=== PATIENT | male | born 1980 | race Caucasian/White ===

== ENCOUNTER 2018-04-27 00:28 | Emergency (ER) | payer OTHER ==
[2018-04-27 00:45] VITALS: BP 147/73; PULSE 62; RESP 18; TEMP 98.8; O2SAT 98
--- NOTE | 2018-04-27 01:13 | ED PDOC ---
HPI: CCC, URI, Sore Throat Time Seen by Provider: 04/27/18 00:57 Chief Complaint (Nursing): Abdominal Pain Chief Complaint (Provider): [place], sore throat for 1 day History Per: Patient History/Exam Limitations: no limitations Onset/Duration Of Symptoms: Days Current Symptoms Are (Timing): Still Present Additional Complaint(s): 38 yo male with history of crohn's presents for evaluation of sore throat and cough x 1 day. Pt also reports chest pain when coughing. Pt states that he has also been having abdominal pain for a few hours. Pt took OTC medication/ supplement which calmed the pain a little. Pt states this feels like his normal pain which he normally takes and anti-spasmatic medication for. PT deneis N/V/ D. no fever/chills. Pt is on honeymoon. Past Medical History Reviewed: Historical Data, Nursing Documentation, Vital Signs Vital Signs: Last Vital Signs Temp 98.8 F 04/27/18 00:42 Pulse 62 04/27/18 00:42 Resp 18 04/27/18 00:42 BP 147/73 04/27/18 00:42 Pulse Ox 98 04/27/18 01:16 - Medical History PMH: Crohn's Disease - Surgical History Surgical History: No Surg Hx - Family History Family History: States: No Known Family Hx - Living Arrangements Living Arrangements: With Family - Social History Current smoker - smoking cessation education provided: No - Home Medications Home Medications: Ambulatory Orders Medication Instructions Recorded Azithromycin [Zithromax] 250 mg PO DAILY #6 tab 04/27/18 Dicyclomine [Bentyl] 20 mg PO Q6H PRN #20 tab 04/27/18 - Allergies Allergies/Adverse Reactions: Allergies Allergy/AdvReac Type Severity Reaction Status Date / Time iodine Allergy RASH Verified 04/27/18 00:45 Review of Systems ROS Statement: Except As Marked, All Systems Reviewed And Found Negative Constitutional: Negative for: Fever, Chills ENT: Positive for: Throat Pain Respiratory: Positive for: Cough. Negative for: Shortness of Breath Gastrointestinal: Positive for: Abdominal Pain. Negative for: Nausea, Vomiting , Diarrhea Physical Exam - Reviewed Nursing Documentation Reviewed: Yes Vital Signs Reviewed: Yes - Physical Exam Appears: Positive for: Well, Non-toxic, No Acute Distress Head Exam: Positive for: ATRAUMATIC, NORMAL INSPECTION, NORMOCEPHALIC Skin: Positive for: Normal Color, Warm, DRY Eye Exam: Positive for: Normal appearance ENT: Positive for: Normal ENT Inspection Neck: Positive for: Normal, Painless ROM Cardiovascular/Chest: Positive for: Regular Rate, Rhythm Respiratory: Positive for: Normal Breath Sounds. Negative for: Accessory Muscle Use, Respiratory Distress Gastrointestinal/Abdominal: Positive for: Normal Exam, Soft, Tenderness ( Diffuse ) Back: Positive for: Normal Inspection Extremity: Positive for: Normal ROM Neurologic/Psych: Positive for: Alert, Oriented - Laboratory Results Result Diagrams: 04/27/18 01:25 04/27/18 01:25 - ECG O2 Sat by Pulse Oximetry: 98 Medical Decision Making Medical Decision Making: Pt reports feeling much better on re-evaluation. Disposition - Clinical Impression Clinical Impression: URI (upper respiratory infection), Abdominal pain Counseled Patient/Family Regarding: Diagnosis, Need For Followup, Rx Given - Disposition Disposition: Routine/Home Disposition Time: 02:59 Condition: STABLE Prescriptions: Azithromycin [Zithromax] 250 mg PO DAILY #6 tab Dicyclomine [Bentyl] 20 mg PO Q6H PRN #20 tab PRN Reason: Cramping Instructions: Bacterial Upper Respiratory Infection, Adult Forms: [facility] (Lebanese)
[2018-04-27 01:34] LABS: BASO # 0.1 K/uL (0.0-0.2); BASO % 0.8 % (0.0-2.0); EOS # 0.3 K/uL (0.0-0.7); EOS % 2.3 % (0.0-4.0); HEMOGLOBIN 14.1 g/dL (12.0-18.0); LYMPH # 4.2 K/uL (1.0-4.3); LYMPH % 37.2 % (20.0-40.0); MEAN CELL VOLUME 85.9 fl (80.0-94.0); MEAN CORPUSCULAR HEMOGLOBIN 29.5 pg (27.0-31.0); MEAN CORPUSCULAR HGB CONC 34.3 g/dL (33.0-37.0); MEAN PLATELET VOLUME 8.1 fl (7.2-11.7); MONO # 0.9 K/uL (0.0-0.8); MONO % 7.7 % (0.0-10.0); NEUT # 5.9 K/uL (1.8-7.0); NRBC % 0.1 % (0.0-0.0); RBC 4.78 Mil/uL (4.40-5.90); RED CELL DISTRIBUTION WIDTH 13.2 % (11.5-14.5); WHITE BLOOD COUNT 11.4 K/uL (4.8-10.8)
[2018-04-27 01:46] LABS: ALB/GLOB RATIO 1.2 (1.0-2.1); ALT/SGPT 75 U/L (21-72); AST/SGOT 49 U/L (17-59); BLOOD UREA NITROGEN 20 mg/dl (9-20); CALCIUM 8.9 mg/dL (8.4-10.2); GFR NON-AFRICAN AMERICAN > 60
--- NOTE | 2018-04-27 08:35 | RAD ---
Date of service: 04/27/2018 HISTORY: cough COMPARISON: No prior. TECHNIQUE: Chest PA and lateral FINDINGS: LUNGS: No active pulmonary disease. PLEURA: No significant pleural effusion identified. No pneumothorax apparent. CARDIOVASCULAR: Normal. OSSEOUS STRUCTURES: No significant abnormalities. VISUALIZED UPPER ABDOMEN: Normal. OTHER FINDINGS: None. IMPRESSION: No active disease.
== END 2018-04-27 03:09 | disposition home or self-care (01) ==
LOC: H.ER 00:28
DX: J06.9 Acute upper respiratory infection, unspecified (principal); K50.90 Crohn's disease, unspecified, without complications

== ENCOUNTER 2018-04-30 18:40 | Inpatient (IN) | payer OTHER ==
[2018-04-30] MEDS ORDERED: Iohexol 240 (50 ml) PO ONE (20:18)
[2018-04-30 20:48] LABS: BASO # 0.1 K/uL (0.0-0.2); BASO % 0.7 % (0.0-2.0); EOS # 0.2 K/uL (0.0-0.7); EOS % 3.3 % (0.0-4.0); HEMOGLOBIN 15.3 g/dL (12.0-18.0); MEAN CELL VOLUME 85.9 fl (80.0-94.0); MEAN CORPUSCULAR HEMOGLOBIN 29.5 pg (27.0-31.0); MEAN CORPUSCULAR HGB CONC 34.4 g/dL (33.0-37.0); MEAN PLATELET VOLUME 8.5 fl (7.2-11.7); MONO # 0.5 K/uL (0.0-0.8); MONO % 6.7 % (0.0-10.0); NEUT # 2.6 K/uL (1.8-7.0); NEUT % 35.3 % (50.0-75.0); NRBC % 0.2 % (0.0-0.0); RBC 5.18 Mil/uL (4.40-5.90); RED CELL DISTRIBUTION WIDTH 13.3 % (11.5-14.5); WHITE BLOOD COUNT 7.4 K/uL (4.8-10.8)
[2018-04-30 21:23] LABS: ALB/GLOB RATIO 1.1 (1.0-2.1); ALBUMIN 4.5 g/dL (3.5-5.0); ALT/SGPT 560 U/L (21-72); AST/SGOT 352 U/L (17-59); BLOOD UREA NITROGEN 14 mg/dl (9-20); CALCIUM 9.8 mg/dL (8.4-10.2); GFR NON-AFRICAN AMERICAN > 60; LIPASE 66 U/L (23-300)
--- NOTE | 2018-04-30 21:31 | ED PDOC ---
HPI: Abdomen Time Seen by Provider: 04/30/18 19:57 Chief Complaint (Nursing): Abdominal Pain Chief Complaint (Provider): Abdominal Pain History Per: Patient History/Exam Limitations: no limitations Additional Complaint(s): Patient is a 38 y/o male visiting from [facility] who has a history of Crohn's disease who presents to the ED complaining of abdominal pain and URI. Patient was seen here a few days ago for the same symptoms and was discharged home but since the symptoms have persisted and he has also developed severe nausea. Patient denies any vomiting, fever, or diarrhea. Patient reports having mid epigastric and right sided abdominal pain. He also states he noticed his eyes were a little yellow. He spoke to his doctor in [facility] who said he should send ESR, CRP, and CT scans. He states he is allergic to iodine but only in IV form. PMD: in [facility] Past Medical History Reviewed: Historical Data, Nursing Documentation, Vital Signs Vital Signs: Last Vital Signs Temp 98.6 F 04/30/18 18:58 Pulse 54 L 04/30/18 18:58 Resp 16 04/30/18 18:58 BP 129/87 04/30/18 18:58 Pulse Ox 98 04/30/18 18:58 - Medical History PMH: Crohn's Disease - Surgical History Surgical History: Appendectomy, Tonsillectomy - Home Medications Home Medications: Ambulatory Orders Medication Instructions Recorded Azithromycin [Zithromax] 250 mg PO DAILY #6 tab 04/27/18 Dicyclomine [Bentyl] 20 mg PO Q6H PRN #20 tab 04/27/18 - Allergies Allergies/Adverse Reactions: Allergies Allergy/AdvReac Type Severity Reaction Status Date / Time iodine Allergy RASH Verified 04/27/18 00:45 Review of Systems ROS Statement: Except As Marked, All Systems Reviewed And Found Negative Constitutional: Negative for: Fever Eyes: Positive for: Other (yellow eyes) Respiratory: Positive for: Cough Gastrointestinal: Positive for: Nausea, Abdominal Pain. Negative for: Vomiting, Diarrhea Physical Exam - Reviewed Nursing Documentation Reviewed: Yes Vital Signs Reviewed: Yes - Physical Exam Appears: Positive for: Non-toxic, No Acute Distress Head Exam: Positive for: ATRAUMATIC, NORMOCEPHALIC Skin: Positive for: Normal Color, Warm, Dry Eye Exam: Positive for: Scleral icterus Neck: Positive for: Normal, Painless ROM Cardiovascular/Chest: Positive for: Regular Rate, Rhythm. Negative for: Murmur Respiratory: Positive for: Normal Breath Sounds. Negative for: Respiratory Distress Gastrointestinal/Abdominal: Positive for: Tenderness (mid epigastric tenderness; RUQ tenderness) Back: Positive for: Normal Inspection. Negative for: L CVA Tenderness, R CVA Tenderness Extremity: Positive for: Normal ROM. Negative for: Pedal Edema, Deformity Neurologic/Psych: Positive for: Alert, Oriented. Negative for: Motor/Sensory Deficits - Laboratory Results Result Diagrams: 04/30/18 20:40 04/30/18 20:40 - ECG O2 Sat by Pulse Oximetry: 98 (RA) Pulse Ox Interpretation: Normal Medical Decision Making Medical Decision Making: Time: 20:17 Impression: Abdominal pain Initial Plan: Abd Pelvis PO Contrast CMP CRP Lipase CBC w/ diff ESR Omnipaque Time: 22:01 Patient's LFTs are elevated Time: 23:27 CT report reviewed, CT A/P Impression: Pancolitis. Infectious and inflammatory etiologies are considered. 23:42 Patient to be admitted under Dr. Dhillon, and Dr. Hilliard for GI consult. Currently pending US result. --------- Scribe Attestation: Documented by Luis Vail, acting as a scribe for Edie Carney MD Provider Scribe Attestation: All medical record entries made by the Scribe were at my direction and personally dictated by me. I have reviewed the chart and agree that the record accurately reflects my personal performance of the history, physical exam, medical decision making, and the department course for this patient. I have also personally directed, reviewed, and agree with the discharge instructions and disposition. Disposition - Patient ED Disposition Is Patient to be Admitted: Yes - Disposition Disposition Time: 23:43 Condition: STABLE Forms: [facility] (Kyrgyz)
[2018-04-30] MEDS ORDERED: Ciprofloxacin 400mg/200ml D5W 400 MG/200 ML BAG IVPB STA (23:39)
[2018-04-30] MEDS ORDERED: metroNIDAZOLE 500mg/100ml NS 100 ML IVPB STA (23:41)
[2018-05-01] MEDS ORDERED: metroNIDAZOLE 500mg/100ml NS 100 ML IVPB ONE (01:24)
--- NOTE | 2018-05-01 09:02 | CP.PCM.CON ---
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 He reports over the last several days he had abd pain with URI symptoms (GUEVARA and congestion) for which he was recently seen in ED on 04/27 and DCed with dicyclomine and azithromycin. However, he returned on 04/30 due to onset of severe nausea, persistent abdominal pain and yellowing of the eyes. He states that abd pain is epigastric and R sided, non-radiating, worse with laying on R side and worse if he is not eating. States that bowel movements have been normal, formed brown with his last BM being in the ED. He denies any fevers, emesis, melena nor hematochezia. He states his last EGD and CSPY were about 18 months ago but does not know the results. Labs in the ED revealed increased liver tests and CT with pancolitis; therefore, patient started on started on cipro+metronidazole and GI called for further evaluation. 12 point ROS negative other than stated above MHx: See above SurgHx: Appendectomy, Tonsillectomy, IC resection (unclear details) Meds: Recently started of azithromycin, dicyclomine FamHx: Denied h/o GI probs SocHx: Denied EtOH, Tob or Illicits All: IV iodine - rash Past Patient History - Past Medical History & Family History Past Medical History?: Yes - Past Social History Smoking Status: Never Smoked - CARDIAC Hx Cardiac Disorders: No - PULMONARY Hx Respiratory Disorders: No - NEUROLOGICAL Hx Neurological Disorder: No - HEENT Hx HEENT Problems: No - RENAL Hx Chronic Kidney Disease: No - ENDOCRINE/METABOLIC Hx Endocrine Disorders: No - HEMATOLOGICAL/ONCOLOGICAL Hx Blood Disorders: No - INTEGUMENTARY Hx Dermatological Problems: No - MUSCULOSKELETAL/RHEUMATOLOGICAL Hx Falls: No - GASTROINTESTINAL Hx Gastrointestinal Disorders: Yes Hx Crohn's Disease: Yes - GENITOURINARY/GYNECOLOGICAL Hx Genitourinary Disorders: No - PSYCHIATRIC Hx Psychophysiologic Disorder: No Hx Substance Use: No - SURGICAL HISTORY Hx Surgeries: Yes Hx Appendectomy: Yes Hx Tonsillectomy: Yes - ANESTHESIA Hx Anesthesia: Yes Hx Anesthesia Reactions: No Hx Malignant Hyperthermia: No Has any member of the family had a problem w/ anesthesia?: No Meds Allergies/Adverse Reactions: Allergies Allergy/AdvReac Type Severity Reaction Status Date / Time iodine Allergy RASH Verified 04/27/18 00:45 Physical Exam - Constitutional Appears: Well, Non-toxic, No Acute Distress - Head Exam Head Exam: ATRAUMATIC, NORMAL INSPECTION - Eye Exam Eye Exam: EOMI, Scleral icterus. absent: Conjunctival injection - ENT Exam ENT Exam: Mucous Membranes Moist, Normal External Ear Exam. absent: Mucous Membranes Dry - Respiratory Exam Respiratory Exam: Clear to Auscultation Bilateral, NORMAL BREATHING PATTERN. absent: Wheezes - Cardiovascular Exam Cardiovascular Exam: REGULAR RHYTHM, RRR - GI/Abdominal Exam GI & Abdominal Exam: Normal Bowel Sounds, Soft. absent: Bruit, Diminished Bowel Sounds, Distended, Firm, Guarding, Hernia, Hyperactive Bowel Sounds, Hypoactive Bowel Sounds, Mass, Organomegaly, Pulsatile Mass, Rebound, Rigid, Tenderness - Rectal Exam Rectal Exam: Deferred - Extremities Exam Extremities exam: Positive for: normal inspection. Negative for: pedal edema - Neurological Exam Neurological exam: Alert, CN II-XII Intact - Psychiatric Exam Psychiatric exam: Normal Affect, Normal Mood - Skin Skin Exam: Dry, Warm Results - Vital Signs Recent Vital Signs: Last Vital Signs Temp 97 F L 05/01/18 08:47 Pulse 54 L 05/01/18 08:47 Resp 20 05/01/18 08:47 BP 116/77 05/01/18 08:47 Pulse Ox 97 05/01/18 08:47 - Labs Result Diagrams: 04/30/18 20:40 05/01/18 10:36 Labs: Laboratory Results - last 24 hr 04/30/18 04/30/18 20:40 20:40 WBC 7.4 RBC 5.18 Hgb 15.3 Hct 44.5 MCV 85.9 MCH 29.5 MCHC 34.4 RDW 13.3 Plt Count 197 MPV 8.5 Neut % (Auto) 35.3 L Lymph % (Auto) 54.0 H [place] % (Auto) 6.7 Eos % (Auto) 3.3 Baso % (Auto) 0.7 Neut # (Auto) 2.6 Lymph # (Auto) 4.0 [place] # (Auto) 0.5 Eos # (Auto) 0.2 Baso # (Auto) 0.1 ESR 30 H Sodium 141 Potassium 4.4 Chloride 103 Carbon Dioxide 30 Anion Gap 12 BUN 14 Creatinine 0.9 Est GFR ( Amer) > 60 Est GFR (Non-Af Amer) > 60 Random Glucose 83 Calcium 9.8 Total Bilirubin 6.2 H AST 352 H D ALT 560 H D Alkaline Phosphatase 147 H D Total Protein 8.6 H Albumin 4.5 Globulin 4.0 H Albumin/Globulin Ratio 1.1 Lipase 66 Assessment & Plan - Assessment and Plan (Free Text) Assessment: 38 yo M with Crohn's on adalimumab, h/o CMV (treated) and cholelitiasis presenting with abd pain, URI symptoms and jaundice. # Abd Pain, Transamnitis, Jaundice with Pancolitis seen on CT: Unclear exact etiology(ies) but pt with multiple risk factors. Constellation of presenting symptoms in an immunocompromised (adalimumab) would raise concerns for opportunistic infections such as CMV (especially given h/o of infection), HCV, etc. Pain is also already somewhat improving and given cholelithiasis seen on US, could raise possibility of passed stone, but CBD not dilated and would not explain colitis. Pt recently started on azithromycin which is rarely associated with drug-induced liver injury (DILI), though time course seems a little quick for it. Crohn's flare overall seems less likely given compliance with a dalimumab and normal BMs reported. Also, pancolitis on CT could be suggestive of UC rather than Crohn's; therefore raising concerns for PSC, AIH, etc. Plan: - Check Abd MRI+MRCP w/con - Check JOSESITO, AMA, ASMA, Anti-LK, CMV PCR, HSV PCR, UDS - Fractionate Bili - Viral Hep pending - Monitor liver tests - Check INR - OK to advance diet after imaging complete - Can cont Cipro+Metro Thank you for the consult, will continue to follow. Pt seen and examined with Dr. Hilliard.
--- NOTE | 2018-05-01 09:06 | CP.PCM.HP ---
<Samuel Justice - Last Filed: 05/01/18 15:45> History of Present Illness - History of Present Illness History of Present Illness: Pt is a 38 y/o male with pmhx of Chrons disease presenting with complaints of epigastric abdominal pain associated nausea, and yellowing his eyes. Notably, he was evaluated in ED for URI 3-4 days ago and treated with Azithromycin which has been improving his symptoms. Denies vomiting, diarrhea, sob, cp, le edema, fever/chills. PMD (in [facility]): Dr. He PMHX: Chrons Disease (18 years, treated with Vanesa biweekly w/ hx of multiple flares requiring hospitlizations), Cholelithiasis (pt was told he needed surgery on a non urgent basis 3 months ago) PSHx: Ileocecal valce surgery, Appendicitis SocialHx: Denies smoking ED Course: Abdomen/Pelvis CT- Pancolitis, Contracted Gall bladder with wall thickeninc and mild pericholecystic inflammatory change CBC -- wnl CMP --- AST/ALT 352/560, Total Bili 6.2 Lipase wnl ESR Present on Admission - Present on Admission Any Indicators Present on Admission: No Past Patient History - Past Medical History & Family History Past Medical History?: Yes - Past Social History Smoking Status: Never Smoked - CARDIAC Hx Cardiac Disorders: No - PULMONARY Hx Respiratory Disorders: No - NEUROLOGICAL Hx Neurological Disorder: No - HEENT Hx HEENT Problems: No - RENAL Hx Chronic Kidney Disease: No - ENDOCRINE/METABOLIC Hx Endocrine Disorders: No - HEMATOLOGICAL/ONCOLOGICAL Hx Blood Disorders: No - INTEGUMENTARY Hx Dermatological Problems: No - MUSCULOSKELETAL/RHEUMATOLOGICAL Hx Falls: No - GASTROINTESTINAL Hx Gastrointestinal Disorders: Yes Hx Crohn's Disease: Yes - GENITOURINARY/GYNECOLOGICAL Hx Genitourinary Disorders: No - PSYCHIATRIC Hx Psychophysiologic Disorder: No Hx Substance Use: No - SURGICAL HISTORY Hx Surgeries: Yes Hx Appendectomy: Yes Hx Tonsillectomy: Yes - ANESTHESIA Hx Anesthesia: Yes Hx Anesthesia Reactions: No Hx Malignant Hyperthermia: No Has any member of the family had a problem w/ anesthesia?: No Meds Allergies/Adverse Reactions: Allergies Allergy/AdvReac Type Severity Reaction Status Date / Time iodine Allergy RASH Verified 04/27/18 00:45 Physical Exam - Constitutional Appears: No Acute Distress, Chronically Ill - Head Exam Head Exam: NORMAL INSPECTION - Eye Exam Eye Exam: Scleral icterus - ENT Exam ENT Exam: Mucous Membranes Moist - Neck Exam Neck exam: Positive for: Full Rom - Respiratory Exam Respiratory Exam: Clear to Auscultation Bilateral. absent: Rales, Wheezes - Cardiovascular Exam Cardiovascular Exam: REGULAR RHYTHM, +S1, +S2 - GI/Abdominal Exam GI & Abdominal Exam: Normal Bowel Sounds, Soft, Tenderness (Epigastric and RUQ, mild). absent: Distended, Guarding, Hernia, Organomegaly - Extremities Exam Extremities exam: Positive for: normal inspection. Negative for: pedal edema - Neurological Exam Neurological exam: Alert, Oriented x3 - Psychiatric Exam Psychiatric exam: Normal Affect - Skin Skin Exam: Normal Color Results - Vital Signs Recent Vital Signs: Last Vital Signs Temp 97 F L 05/01/18 08:47 Pulse 54 L 05/01/18 08:47 Resp 20 05/01/18 08:47 BP 116/77 05/01/18 08:47 Pulse Ox 97 05/01/18 08:47 - Labs Result Diagrams: 04/30/18 20:40 05/01/18 10:36 Labs: Laboratory Results - last 24 hr 04/30/18 04/30/18 20:40 20:40 WBC 7.4 RBC 5.18 Hgb 15.3 Hct 44.5 MCV 85.9 MCH 29.5 MCHC 34.4 RDW 13.3 Plt Count 197 MPV 8.5 Neut % (Auto) 35.3 L Lymph % (Auto) 54.0 H [place] % (Auto) 6.7 Eos % (Auto) 3.3 Baso % (Auto) 0.7 Neut # (Auto) 2.6 Lymph # (Auto) 4.0 [place] # (Auto) 0.5 Eos # (Auto) 0.2 Baso # (Auto) 0.1 ESR 30 H Sodium 141 Potassium 4.4 Chloride 103 Carbon Dioxide 30 Anion Gap 12 BUN 14 Creatinine 0.9 Est GFR ( Amer) > 60 Est GFR (Non-Af Amer) > 60 Random Glucose 83 Calcium 9.8 Total Bilirubin 6.2 H AST 352 H D ALT 560 H D Alkaline Phosphatase 147 H D Total Protein 8.6 H Albumin 4.5 Globulin 4.0 H Albumin/Globulin Ratio 1.1 Lipase 66 Assessment & Plan - Assessment and Plan (Free Text) Assessment: Pt is a 38 y/o male with pmhx of Chrons disease presenting with complaints of epigastric abdominal pain associated nausea, and yellowing his eyes, noted to have pancolitis and questionable Cholecystitis on CT Abdomen. #Pancolitis -Cipro, Flagyl IV -IV hydration #Cholithiasis, unable to rule out cholecystitis -GI and General Surgery/Hepatobiliary Consulted for evaluation of surgical intervention -NPO for now #Transminitis -May be related to biliary duct obstruction, though CBD was normal -Hepatitis workup sent #Chrons -As per GI Management Discussed case with Dr. Alejo Justice, PGY2 <Broderick Dhillon - Last Filed: 05/01/18 17:29> Results - Vital Signs Recent Vital Signs: Last Vital Signs Temp 98 F 05/01/18 16:02 Pulse 50 L 05/01/18 16:02 Resp 18 05/01/18 16:02 BP 109/63 05/01/18 16:02 Pulse Ox 98 05/01/18 16:02 - Labs Result Diagrams: 04/30/18 20:40 05/01/18 10:36 Labs: Laboratory Results - last 24 hr 04/30/18 04/30/18 05/01/18 20:40 20:40 10:36 WBC 7.4 RBC 5.18 Hgb 15.3 Hct 44.5 MCV 85.9 MCH 29.5 MCHC 34.4 RDW 13.3 Plt Count 197 MPV 8.5 Neut % (Auto) 35.3 L Lymph % (Auto) 54.0 H [place] % (Auto) 6.7 Eos % (Auto) 3.3 Baso % (Auto) 0.7 Neut # (Auto) 2.6 Lymph # (Auto) 4.0 [place] # (Auto) 0.5 Eos # (Auto) 0.2 Baso # (Auto) 0.1 ESR 30 H Sodium 141 141 Potassium 4.4 4.4 Chloride 103 105 Carbon Dioxide 30 27 Anion Gap 12 13 BUN 14 14 Creatinine 0.9 0.9 Est GFR ( Amer) > 60 > 60 Est GFR (Non-Af Amer) > 60 > 60 Random Glucose 83 78 Calcium 9.8 9.3 Phosphorus 3.2 Magnesium 1.9 Total Bilirubin 6.2 H 5.7 H AST 352 H D 233 H D ALT 560 H D 467 H Alkaline Phosphatase 147 H D 147 H C-Reactive Protein 7.40 Total Protein 8.6 H 8.1 Albumin 4.5 4.2 Globulin 4.0 H 3.9 Albumin/Globulin Ratio 1.1 1.1 Lipase 66 Urine Opiates Screen Urine Methadone Screen Ur Barbiturates Screen Ur Phencyclidine Scrn Ur Amphetamines Screen U Benzodiazepines Scrn U Oth Cocaine Metabols U Cannabinoids Screen Hepatitis A IgM Ab Hep Bs Antigen Hep B Core IgM Ab Hepatitis C Antibody Negative 05/01/18 05/01/18 10:37 14:00 WBC RBC Hgb Hct MCV MCH MCHC RDW Plt Count MPV Neut % (Auto) Lymph % (Auto) [place] % (Auto) Eos % (Auto) Baso % (Auto) Neut # (Auto) Lymph # (Auto) [place] # (Auto) Eos # (Auto) Baso # (Auto) ESR Sodium Potassium Chloride Carbon Dioxide Anion Gap BUN Creatinine Est GFR ( Amer) Est GFR (Non-Af Amer) Random Glucose Calcium Phosphorus Magnesium Total Bilirubin AST ALT Alkaline Phosphatase C-Reactive Protein Total Protein Albumin Globulin Albumin/Globulin Ratio Lipase Urine Opiates Screen Negative Urine Methadone Screen Negative Ur Barbiturates Screen Negative Ur Phencyclidine Scrn Negative Ur Amphetamines Screen Negative U Benzodiazepines Scrn Negative U Oth Cocaine Metabols Negative U Cannabinoids Screen Negative Hepatitis A IgM Ab Negative Hep Bs Antigen Negative Hep B Core IgM Ab Negative Hepatitis C Antibody Negative Assessment & Plan - Assessment and Plan (Free Text) Assessment: Patient was personally seen and examined by me in rounds with residents. Available labs and diagnostic data reviewed. Case, Patient's condition and management plan discussed with residents in rounds. Agree with resident's progress note. Plan: As ordered.
[2018-05-01] MEDS: metroNIDAZOLE 500mg/100ml NS 100 ML IVPB SCH ×2 (10:36→17:29)
[2018-05-01] MEDS: Ciprofloxacin 400mg/200ml D5W 400 MG/200 ML BAG IVPB SCH ×2 (10:37→21:05)
[2018-05-01] MEDS: Dextrose 5%/0.9% NS 1,000 ML IV SCH (10:37)
[2018-05-01 11:06] LABS: ALBUMIN 4.2 g/dL (3.5-5.0); BLOOD UREA NITROGEN 14 mg/dl (9-20); CALCIUM 9.3 mg/dL (8.4-10.2); GFR NON-AFRICAN AMERICAN > 60
[2018-05-01 11:07] LABS: ALB/GLOB RATIO 1.1 (1.0-2.1); ALT/SGPT 467 U/L (21-72); AST/SGOT 233 U/L (17-59)
--- NOTE | 2018-05-01 11:58 | US ---
Date of service: 04/30/2018 HISTORY: jaundice, elev lfts COMPARISON: None. TECHNIQUE: Sonographic evaluation of the right upper quadrant of the abdomen. FINDINGS: LIVER: Measures 12.6 cm in length. Normal echogenicity of the liver parenchyma. No mass. No intrahepatic bile duct dilatation. GALLBLADDER: Cholelithiasis within a contracted gallbladder. Sonographic Dan's sign was not elicited. COMMON BILE DUCT: Measures 5 mm. No stones. No dilatation. PANCREAS: Unremarkable as visualized. No mass. No ductal dilatation. RIGHT KIDNEY: Measures 9.5 x 3.9 x 5.1 cm in length. Normal echogenicity. No calculus, mass, or hydronephrosis. AORTA: No aneurysmal dilatation. IVC: Unremarkable. OTHER FINDINGS: None . IMPRESSION: Cholelithiasis without sonographic evidence of acute cholecystitis.
--- NOTE | 2018-05-01 12:09 | CT ---
Date of service: 04/30/2018 PROCEDURE: CT Abdomen and Pelvis without intravenous contrast HISTORY: abd pain, upper, history of crohns COMPARISON: None. TECHNIQUE: Contiguous images were obtained from the domes of the diaphragms to the upper thighs without the administration of intravenous contrast. Oral contrast was not administered. Radiation dose: Total exam DLP = 549.8 mGy-cm. This CT exam was performed using one or more of the following dose reduction techniques: Automated exposure control, adjustment of the mA and/or kV according to patient size, and/or use of iterative reconstruction technique. FINDINGS: LOWER THORAX: Unremarkable. LIVER: Unremarkable. No gross lesion or ductal dilatation. GALLBLADDER AND BILE DUCTS: Contracted gallbladder with wall thickening and mild pericholecystic inflammatory change. PANCREAS: Unremarkable. No gross lesion or ductal dilatation. SPLEEN: Unremarkable. ADRENALS: Unremarkable. No mass. KIDNEYS AND URETERS: Unremarkable. No hydronephrosis. No solid mass. VASCULATURE: Unremarkable. No aortic aneurysm. BOWEL: Unremarkable. No obstruction. No gross mural thickening. APPENDIX: No findings to suggest acute appendicitis. PERITONEUM: Small umbilical fat containing hernia. No free fluid. No free air. LYMPH NODES: Unremarkable. No enlarged lymph nodes. BLADDER: Unremarkable. REPRODUCTIVE: Unremarkable. BONES: No acute fracture. OTHER FINDINGS: None. IMPRESSION: Contracted gallbladder with wall thickening and mild pericholecystic inflammatory change. Gallbladder wall thickening is a nonspecific finding which can be seen with ascites, hepatitis, cholecystitis, CHF or hypoproteinemic states. Clinical correlation is recommended. If clinical concern for gallbladder pathology exists, a HIDA scan may be performed.
[2018-05-01] MEDS ORDERED: Gadodiamide 287 MG/ML VIAL (15ML) IV ONE (12:57)
[2018-05-01] MEDS ORDERED: Sodium Chloride 0.9% 50 ML IV ONE (12:57)
--- NOTE | 2018-05-01 14:28 | MRI ---
Date of service: 05/01/2018 PROCEDURE: Magnetic Resonance Cholangiopancreatography HISTORY: COMPARISON: None available. TECHNIQUE: Multiplanar, multisequence MR images of the abdomen were obtained, including heavily T2 weighted MRCP images of the biliary system. Rotating maximum intensity projection images of the biliary system were generated. FINDINGS: MRCP: The common bile duct is of a normal caliber. No evidence of choledocholithiasis. No intrahepatic biliary ductal dilatation. LIVER: Normal size, contour and signal intensity. No mass. No biliary dilatation. No evidence of portal venous thrombosis.. No abnormal enhancement. GALLBLADDER: Cholelithiasis. No mural thickening or pericholecystic edema. SPLEEN: Unremarkable. PANCREAS: No abnormal enhancement. No mass. No pancreatic ductal dilatation. ADRENALS: Unremarkable. KIDNEYS: Three small right upper pole renal cortical cysts. AORTA: No aneurysm. ASCITES: None. OTHER FINDINGS: None. IMPRESSION: Cholelithiasis. No evidence of choledocholithiasis. No evidence of biliary obstruction. Minor findings as above.
[2018-05-01 14:53] LABS: BARBITURATES, UR NEGATIVE (NEGATIVE); BENZODIAZEPINES, UR NEGATIVE (NEGATIVE); OPIATES, UR NEGATIVE (NEGATIVE); PHENCYCLIDINE, UR NEGATIVE (NEGATIVE)
[2018-05-01 15:17] VITALS: BMI 29.4
[2018-05-01] MEDS ORDERED: DiphenhydrAMINE 50 mg/ml Inj IVP STA (16:17)
[2018-05-01 16:18] LABS: HEPATITIS B SURFACE AG Negative (NEGATIVE)
[2018-05-01 16:24] LABS: HEPATITIS B CORE AB NEGATIVE (NEGATIVE)
[2018-05-01 16:26] LABS: HEPATITIS A IGM NEGATIVE (NEGATIVE)
[2018-05-01 16:36] LABS: HEPATITIS C ANTIBODY NEGATIVE (NEGATIVE)
[2018-05-01 16:36] LABS: HEPATITIS C ANTIBODY NEGATIVE (NEGATIVE)
--- NOTE | 2018-05-01 19:06 | CP.PCM.CON ---
History of Present Illness - History of Present Illness History of Present Illness: Surgery: Dr. Mckeon Pt is a 38M with PMHx significant for Crohn's on Humira (started 3 months ago), who is visiting from [facility], and presented to [facility] with epigastric abdominal pain x 3 days. Pt states he started having abdominal pain 3 days ago with some URI symptoms and came to the ER, was treated with pain meds & discharged on ABX because he felt better. However, last night he started having abdominal pain again and when pain did not improve he came to the ER. He admits to associated nausea and jaundice. He denies any change in his bowel habits, denies BPR, diarrhea/constipation, fevers or chills. As per the pt, he had a similar episode a few months back and at that time he was being treated for latent TB so his elevated liver enzymes were attributed to the TB meds which were then stopped. In the ER, pt had a CT abdomen/pelvis as well as an US which showed contracted GB with stones. Pt found to have elevated T bili 6.2 as well as elevated Alk phos, AST/ALT. MRCP was obtained and showed no CBD stones. Surgery as well as GI consulted. Currently, pt is resting comfortably but states his pain is still present in the epigastric region. He denies any episodes of vomiting or diarrhea. Pt states he was diagnosed 18yrs ago with Crohn's when his appendix was removed & he also had an ileocecectomy 5 yrs ago for inflammation 2/2 Crohn's. His last EGD/colonoscopy was 1 year ago. PMHx: Crohn's, CMV hepatitis, latent TB PSHx: Ileocecectomy, appendectomy SociaHx: denies smoking/EtOH/drugs ALL: Iodine Review of Systems - Review of Systems All systems: reviewed and no additional remarkable complaints except (as per HPI) Past Patient History - Past Medical History & Family History Past Medical History?: Yes - Past Social History Smoking Status: Never Smoked - CARDIAC Hx Cardiac Disorders: No - PULMONARY Hx Respiratory Disorders: No - NEUROLOGICAL Hx Neurological Disorder: No - HEENT Hx HEENT Problems: No - RENAL Hx Chronic Kidney Disease: No - ENDOCRINE/METABOLIC Hx Endocrine Disorders: No - HEMATOLOGICAL/ONCOLOGICAL Hx Blood Disorders: No - INTEGUMENTARY Hx Dermatological Problems: No - MUSCULOSKELETAL/RHEUMATOLOGICAL Hx Falls: No - GASTROINTESTINAL Hx Gastrointestinal Disorders: Yes Hx Crohn's Disease: Yes - GENITOURINARY/GYNECOLOGICAL Hx Genitourinary Disorders: No - PSYCHIATRIC Hx Psychophysiologic Disorder: No Hx Substance Use: No - SURGICAL HISTORY Hx Surgeries: Yes Hx Appendectomy: Yes Hx Tonsillectomy: Yes - ANESTHESIA Hx Anesthesia: Yes Hx Anesthesia Reactions: No Hx Malignant Hyperthermia: No Has any member of the family had a problem w/ anesthesia?: No Meds Allergies/Adverse Reactions: Allergies Allergy/AdvReac Type Severity Reaction Status Date / Time iodine Allergy RASH Verified 04/27/18 00:45 - Medications Medications: Current Medications Famotidine (Pepcid) 20 mg IVP Q12 ALEIDA Last Admin: 05/01/18 10:36 Dose: 20 mg Ciprofloxacin (Cipro 400mg/200ml Dsw) 400 mg in 200 mls @ 200 mls/hr IVPB Q12 ALEIDA; Protocol Last Admin: 05/01/18 10:37 Dose: 200 mls/hr Metronidazole (Flagyl 500mg/100ml Ns) 100 mls @ 100 mls/hr IVPB Q8 ALEIDA; Protocol Last Admin: 05/01/18 17:29 Dose: 100 mls/hr Dextrose/Sodium Chloride (Dextrose 5%/0.9% Ns 1000 Ml) 1,000 mls @ 125 mls/hr IV .Q8H ALEIDA Stop: 05/02/18 09:05 Last Admin: 05/01/18 10:37 Dose: 125 mls/hr Pantoprazole Sodium (Protonix Inj) 40 mg IVP DAILY ALEIDA Last Admin: 05/01/18 17:30 Dose: 40 mg Physical Exam - Constitutional Appears: Well, No Acute Distress - Head Exam Head Exam: ATRAUMATIC, NORMOCEPHALIC - Eye Exam Eye Exam: Scleral icterus - ENT Exam ENT Exam: Mucous Membranes Moist - Respiratory Exam Respiratory Exam: NORMAL BREATHING PATTERN - Cardiovascular Exam Cardiovascular Exam: RRR - GI/Abdominal Exam GI & Abdominal Exam: Soft, Tenderness (epigastrium ). absent: Distended, Guarding, Rebound - Extremities Exam Extremities exam: Negative for: calf tenderness - Neurological Exam Neurological exam: Alert, Oriented x3 - Skin Skin Exam: Dry, Warm Results - Vital Signs Recent Vital Signs: Last Vital Signs Temp 98 F 05/01/18 16:02 Pulse 50 L 05/01/18 16:02 Resp 18 05/01/18 16:02 BP 109/63 05/01/18 16:02 Pulse Ox 98 05/01/18 16:02 - Labs Result Diagrams: 04/30/18 20:40 05/01/18 10:36 Labs: Laboratory Results - last 24 hr 04/30/18 04/30/18 05/01/18 20:40 20:40 10:36 WBC 7.4 RBC 5.18 Hgb 15.3 Hct 44.5 MCV 85.9 MCH 29.5 MCHC 34.4 RDW 13.3 Plt Count 197 MPV 8.5 Neut % (Auto) 35.3 L Lymph % (Auto) 54.0 H Woodruff % (Auto) 6.7 Eos % (Auto) 3.3 Baso % (Auto) 0.7 Neut # (Auto) 2.6 Lymph # (Auto) 4.0 Woodruff # (Auto) 0.5 Eos # (Auto) 0.2 Baso # (Auto) 0.1 ESR 30 H Sodium 141 141 Potassium 4.4 4.4 Chloride 103 105 Carbon Dioxide 30 27 Anion Gap 12 13 BUN 14 14 Creatinine 0.9 0.9 Est GFR ( Amer) > 60 > 60 Est GFR (Non-Af Amer) > 60 > 60 Random Glucose 83 78 Calcium 9.8 9.3 Phosphorus 3.2 Magnesium 1.9 Total Bilirubin 6.2 H 5.7 H AST 352 H D 233 H D ALT 560 H D 467 H Alkaline Phosphatase 147 H D 147 H C-Reactive Protein 7.40 Total Protein 8.6 H 8.1 Albumin 4.5 4.2 Globulin 4.0 H 3.9 Albumin/Globulin Ratio 1.1 1.1 Lipase 66 Urine Opiates Screen Urine Methadone Screen Ur Barbiturates Screen Ur Phencyclidine Scrn Ur Amphetamines Screen U Benzodiazepines Scrn U Oth Cocaine Metabols U Cannabinoids Screen Hepatitis A IgM Ab Hep Bs Antigen Hep B Core IgM Ab Hepatitis C Antibody Negative 05/01/18 05/01/18 10:37 14:00 WBC RBC Hgb Hct MCV MCH MCHC RDW Plt Count MPV Neut % (Auto) Lymph % (Auto) Woodruff % (Auto) Eos % (Auto) Baso % (Auto) Neut # (Auto) Lymph # (Auto) Woodruff # (Auto) Eos # (Auto) Baso # (Auto) ESR Sodium Potassium Chloride Carbon Dioxide Anion Gap BUN Creatinine Est GFR ( Amer) Est GFR (Non-Af Amer) Random Glucose Calcium Phosphorus Magnesium Total Bilirubin AST ALT Alkaline Phosphatase C-Reactive Protein Total Protein Albumin Globulin Albumin/Globulin Ratio Lipase Urine Opiates Screen Negative Urine Methadone Screen Negative Ur Barbiturates Screen Negative Ur Phencyclidine Scrn Negative Ur Amphetamines Screen Negative U Benzodiazepines Scrn Negative U Oth Cocaine Metabols Negative U Cannabinoids Screen Negative Hepatitis A IgM Ab Negative Hep Bs Antigen Negative Hep B Core IgM Ab Negative Hepatitis C Antibody Negative - Imaging and Cardiology CT scan - abdomen Status: Image reviewed by me, Report reviewed by me MRCP Status: Image reviewed by me, Report reviewed by me Assessment & Plan - Assessment and Plan (Free Text) Assessment: 38M with Hx of Crohn's presenting with abdominal pain, hyperbilirubinemia & transaminitis; r/o PSC vs Hepatitis Plan: - Keep NPO with IVF - repeat CT abdomen/pelvis with IV contrast - Will pre-medicate prior to giving contrast due to Iodine allergy - f/u Hep panel - plan for OR in AM for lap sandro & liver biopsy - d/w Dr. Linda Hill
[2018-05-02] MEDS: Dextrose 5%/0.9% NS 1,000 ML IV SCH (01:33)
[2018-05-02] MEDS: metroNIDAZOLE 500mg/100ml NS 100 ML IVPB SCH ×3 (01:33→16:02)
[2018-05-02 06:39] LABS: BASO % 0.4 % (0.0-2.0); EOS # 0.2 K/uL (0.0-0.7); EOS % 3.5 % (0.0-4.0); HEMOGLOBIN 14.3 g/dL (12.0-18.0); LYMPH % 57.7 % (20.0-40.0); MEAN CORPUSCULAR HEMOGLOBIN 29.6 pg (27.0-31.0); MEAN PLATELET VOLUME 8.6 fl (7.2-11.7); MONO # 0.4 K/uL (0.0-0.8); MONO % 8.6 % (0.0-10.0); NEUT # 1.5 K/uL (1.8-7.0); NEUT % 29.8 % (50.0-75.0); NRBC % 0.1 % (0.0-0.0); RBC 4.84 Mil/uL (4.40-5.90); RED CELL DISTRIBUTION WIDTH 13.4 % (11.5-14.5); WHITE BLOOD COUNT 5.2 K/uL (4.8-10.8)
[2018-05-02 06:47] LABS: PROTHROMBIN TIME 11.6 Seconds (9.8-13.1)
[2018-05-02] MEDS ORDERED: DiphenhydrAMINE 50 mg/ml Inj IVP PRN (06:47)
[2018-05-02 06:50] LABS: PARTIAL THROMBOPLASTIN TIME 35.9 Seconds (25.6-37.1)
[2018-05-02 07:06] LABS: ALB/GLOB RATIO 1.1 (1.0-2.1); ALBUMIN 3.7 g/dL (3.5-5.0); ALT/SGPT 339 U/L (21-72); AST/SGOT 134 U/L (17-59); BILIRUBIN,DIRECT 0.8 mg/ml (0.0-0.4); BLOOD UREA NITROGEN 11 mg/dl (9-20); CALCIUM 8.9 mg/dL (8.4-10.2); GFR NON-AFRICAN AMERICAN > 60
[2018-05-02] MEDS: Ciprofloxacin 400mg/200ml D5W 400 MG/200 ML BAG IVPB SCH ×2 (08:51→21:01)
--- NOTE | 2018-05-02 09:25 | CP.PCM.PN ---
Subjective - Date & Time of Evaluation Date of Evaluation: 05/02/18 Time of Evaluation: 06:50 - Subjective Subjective: General Surgery Pt seen and examined. Discussed his case at length and pt does not want surgery here unless it is an emergency. Pain has improved. Reports he was also taking Valerian root prior to this hospital visit. No new complaints. Objective - Vital Signs/Intake and Output Vital Signs (last 24 hours): Temp Pulse Resp BP Pulse Ox 97.6 F 50 L 20 116/68 98 05/02/18 08:48 05/02/18 08:48 05/02/18 08:48 05/02/18 08:48 05/02/18 08:48 - Medications Medications: Current Medications Acetaminophen (Tylenol 325mg Tab) 650 mg PO Q6 PRN PRN Reason: Headache Last Admin: 05/01/18 22:07 Dose: 650 mg Diphenhydramine HCl (Benadryl) 50 mg IVP ONCE PRN PRN Reason: Allergy symptoms Famotidine (Pepcid) 20 mg IVP Q12 ALEIDA Last Admin: 05/02/18 08:51 Dose: 20 mg Ciprofloxacin (Cipro 400mg/200ml Dsw) 400 mg in 200 mls @ 200 mls/hr IVPB Q12 ALIEDA; Protocol Last Admin: 05/02/18 08:51 Dose: 200 mls/hr Metronidazole (Flagyl 500mg/100ml Ns) 100 mls @ 100 mls/hr IVPB Q8 ALEIDA; Protocol Last Admin: 05/02/18 08:51 Dose: 100 mls/hr Methylprednisolone (Solu-Medrol) 80 mg IVP ONCE PRN PRN Reason: Allergy symptoms Pantoprazole Sodium (Protonix Inj) 40 mg IVP DAILY ALEIDA Last Admin: 05/02/18 08:52 Dose: 40 mg - Labs Labs: 05/02/18 05:45 05/02/18 05:45 PT 11.6 Seconds (9.8-13.1) 05/02/18 05:45 INR 1.0 05/02/18 05:45 APTT 35.9 Seconds (25.6-37.1) 05/02/18 05:45 - Constitutional Appears: Non-toxic, Younger Than Stated Age - Head Exam Head Exam: ATRAUMATIC, NORMOCEPHALIC - Eye Exam Eye Exam: EOMI. absent: Scleral icterus - Respiratory Exam Respiratory Exam: NORMAL BREATHING PATTERN. absent: Respiratory Distress - Cardiovascular Exam Cardiovascular Exam: RRR, +S1 - GI/Abdominal Exam GI & Abdominal Exam: Soft, Tenderness (mild RUQ on deep palpation). absent: Distended, Firm, Guarding, Rigid, Rebound - Neurological Exam Neurological Exam: Alert, Awake, Oriented x3 - Skin Skin Exam: Dry, Warm Assessment and Plan - Assessment and Plan (Free Text) Assessment: 38M with Hx of Crohn's presenting with abdominal pain, hyperbilirubinemia & transaminitis; r/o PSC vs Hepatitis Plan: - Transaminitis and T Bili improving - Keep NPO with IVF - CT abdomen/pelvis with IV contrast today - Will pre-medicate prior to giving contrast due to Iodine allergy - Hep panel, HIV negative - Pt would like to wait to have surgery in his home country with his doctor. - D/W Dr. Linda Salinas PGY4
--- NOTE | 2018-05-02 09:32 | CP.PCM.PN ---
Subjective - Date & Time of Evaluation Date of Evaluation: 05/02/18 Time of Evaluation: 08:00 - Subjective Subjective: PGY-4 GI Fellow Prog Note Pt lying in bed, at bedside when seen this AM. States abd pain continues to improve and tolerated liquid diet yesterday. Denied N/V, F/C Objective - Vital Signs/Intake and Output Vital Signs (last 24 hours): Temp Pulse Resp BP Pulse Ox 97.6 F 50 L 20 116/68 98 05/02/18 08:48 05/02/18 08:48 05/02/18 08:48 05/02/18 08:48 05/02/18 08:48 - Medications Medications: Current Medications Acetaminophen (Tylenol 325mg Tab) 650 mg PO Q6 PRN PRN Reason: Headache Last Admin: 05/01/18 22:07 Dose: 650 mg Diphenhydramine HCl (Benadryl) 50 mg IVP ONCE PRN PRN Reason: Allergy symptoms Famotidine (Pepcid) 20 mg IVP Q12 ALEIDA Last Admin: 05/02/18 08:51 Dose: 20 mg Ciprofloxacin (Cipro 400mg/200ml Dsw) 400 mg in 200 mls @ 200 mls/hr IVPB Q12 ALEIDA; Protocol Last Admin: 05/02/18 08:51 Dose: 200 mls/hr Metronidazole (Flagyl 500mg/100ml Ns) 100 mls @ 100 mls/hr IVPB Q8 ALEIDA; Protocol Last Admin: 05/02/18 08:51 Dose: 100 mls/hr Methylprednisolone (Solu-Medrol) 80 mg IVP ONCE PRN PRN Reason: Allergy symptoms Pantoprazole Sodium (Protonix Inj) 40 mg IVP DAILY ALEIDA Last Admin: 05/02/18 08:52 Dose: 40 mg - Labs Labs: 05/02/18 05:45 05/02/18 05:45 PT 11.6 Seconds (9.8-13.1) 05/02/18 05:45 INR 1.0 05/02/18 05:45 APTT 35.9 Seconds (25.6-37.1) 05/02/18 05:45 Assessment and Plan - Assessment and Plan (Free Text) Assessment: 38 yo M with Crohn's on adalimumab, h/o CMV (treated) and cholelitiasis presenting with abd pain, URI symptoms and jaundice. # Abd Pain, Transamnitis, Jaundice with Pancolitis seen on CT: Improving. Unclear exact etiology(ies) but pt with multiple risk factors. Constellation of presenting symptoms in an immunocompromised (adalimumab) would raise concerns for opportunistic infections such as CMV (especially given h/o of infection), HCV, etc. Pain is also already somewhat improving and given cholelithiasis seen on US, could raise possibility of passed stone, but CBD not dilated and would not explain colitis. Pt recently started on azithromycin which is rarely associated with drug-induced liver injury (DILI), though time course seems a little quick for it. Crohn's flare overall seems less likely given compliance with adalimumab and normal BMs reported. Also, pancolitis on CT could be suggestive of UC rather than Crohn's; therefore raising concerns for PSC, AIH, etc. Pt also reports taking Valerian root recently, though not in excess. Viral Hep and HIV negative. MRI/MRCP w/o CBD stone nor evidence of biliary strictures. Plan: - No planned interventions from GI standpoint, can consider close f/u with his primary doctors in [facility] - F/u JOSESITO, AMA, ASMA, Anti-LK, CMV PCR, HSV PCR - F/u repeat CT scan with IV contrast, premedication per primary team - Monitor liver tests - Can cont Cipro+Metro Thank you for the consult, will continue to follow. Pt discussed with Dr. Hilliard.
[2018-05-02] MEDS ORDERED: Sodium Chloride 0.9% 50 ML IV ONE (12:57)
[2018-05-02] MEDS ORDERED: Iodixanol 320 MG/ML 100 ML BOTTLE IV ONE (12:57)
--- NOTE | 2018-05-02 14:39 | CT ---
Date of service: 05/02/2018 PROCEDURE: CT Abdomen and Pelvis with and without intravenous contrast HISTORY: elevated LFTs COMPARISON: MRI/MRCP of the abdomen performed 05/01/2018; right upper quadrant ultrasound performed 04/30/2018; CT scan of the abdomen and pelvis performed 04/30/2018. TECHNIQUE: Axial images of the abdomen were obtained in the pre contrast, portal venous and delayed phases of enhancement. Coronal and sagittal reformats were generated. Contrast dose: 95 mL Visipaque 320 Radiation dose: Total exam DLP = 1359 mGy-cm. This CT exam was performed using one or more of the following dose reduction techniques: Automated exposure control, adjustment of the mA and/or kV according to patient size, and/or use of iterative reconstruction technique. FINDINGS: LOWER THORAX: Unremarkable. LIVER: Unremarkable. No gross lesion or ductal dilatation. GALLBLADDER AND BILE DUCTS: Unremarkable. PANCREAS: Unremarkable. No gross lesion or ductal dilatation. SPLEEN: Unremarkable. ADRENALS: Unremarkable. No mass. KIDNEYS AND URETERS: Unremarkable. No hydronephrosis. No solid mass. VASCULATURE: Unremarkable. No aortic aneurysm. BOWEL: Unremarkable. No obstruction. No gross mural thickening. APPENDIX: No findings to suggest acute appendicitis. PERITONEUM: Small fat containing umbilical hernia. No free fluid. No free air. LYMPH NODES: Unremarkable. No enlarged lymph nodes. BLADDER: Unremarkable. REPRODUCTIVE: Unremarkable. BONES: No acute fracture. OTHER FINDINGS: None. IMPRESSION: Unremarkable pre and post contrast enhanced CT of the abdomen and pelvis.
--- NOTE | 2018-05-02 16:11 | CP.PCM.PN ---
<Samuel Justice - Last Filed: 05/02/18 16:11> Subjective - Date & Time of Evaluation Date of Evaluation: 05/02/18 Time of Evaluation: 08:00 - Subjective Subjective: Seen and evaluated this morning with Dr. Dhillon. Denies n/v/d or abdominal pain. States they would like to avoid surgery (unless urgent) if possible due to an upcoming flight and [facility]. Will discuss further with surgery. Objective - Vital Signs/Intake and Output Vital Signs (last 24 hours): Temp Pulse Resp BP Pulse Ox 97.7 F 60 20 116/66 96 05/02/18 15:49 05/02/18 15:49 05/02/18 15:49 05/02/18 15:49 05/02/18 15:49 - Medications Medications: Current Medications Acetaminophen (Tylenol 325mg Tab) 650 mg PO Q6 PRN PRN Reason: Headache Last Admin: 05/01/18 22:07 Dose: 650 mg Diphenhydramine HCl (Benadryl) 50 mg IVP ONCE PRN PRN Reason: Allergy symptoms Last Admin: 05/02/18 12:51 Dose: 50 mg Famotidine (Pepcid) 20 mg IVP Q12 ALEIDA Last Admin: 05/02/18 08:51 Dose: 20 mg Ciprofloxacin (Cipro 400mg/200ml Dsw) 400 mg in 200 mls @ 200 mls/hr IVPB Q12 ALEIDA; Protocol Last Admin: 05/02/18 08:51 Dose: 200 mls/hr Metronidazole (Flagyl 500mg/100ml Ns) 100 mls @ 100 mls/hr IVPB Q8 ALEIDA; Protoco l Last Admin: 05/02/18 16:02 Dose: 100 mls/hr Methylprednisolone (Solu-Medrol) 80 mg IVP ONCE PRN PRN Reason: Allergy symptoms Last Admin: 05/02/18 12:51 Dose: 80 mg Pantoprazole Sodium (Protonix Inj) 40 mg IVP DAILY ALEIDA Last Admin: 05/02/18 08:52 Dose: 40 mg - Labs Labs: 05/02/18 05:45 05/02/18 05:45 PT 11.6 Seconds (9.8-13.1) 05/02/18 05:45 INR 1.0 05/02/18 05:45 APTT 35.9 Seconds (25.6-37.1) 05/02/18 05:45 - Constitutional Appears: No Acute Distress - Head Exam Head Exam: NORMAL INSPECTION - Eye Exam Eye Exam: Normal appearance. absent: Scleral icterus - ENT Exam ENT Exam: Mucous Membranes Moist - Neck Exam Neck Exam: Full ROM - Respiratory Exam Respiratory Exam: Clear to Ausculation Bilateral - Cardiovascular Exam Cardiovascular Exam: REGULAR RHYTHM - GI/Abdominal Exam GI & Abdominal Exam: Soft, Normal Bowel Sounds. absent: Tenderness - Extremities Exam Extremities Exam: absent: Pedal Edema - Neurological Exam Neurological Exam: Alert, Oriented x3 - Psychiatric Exam Psychiatric exam: Normal Affect - Skin Skin Exam: Normal Color Assessment and Plan - Assessment and Plan (Free Text) Assessment: Pt is a 38 y/o male with pmhx of Chrons disease presenting with complaints of epigastric abdominal pain associated nausea, and yellowing his eyes, noted to have pancolitis and questionable Cholecystitis on CT Abdomen. -Symptoms resolved. Transaminitis improved. - No planned interventions from GI standpoint - Surgery consulted- Will repeat CT with IV Contrast and decide if choleycystectomy is needed on an urgent basis. - Continue to monitor liver tests - Can cont Cipro+Metro Discussed case with Dr. Alejo Justice, PGY2 <Broderick Dhillon - Last Filed: 05/05/18 02:49> Objective - Vital Signs/Intake and Output Vital Signs (last 24 hours): Temp Pulse Resp BP Pulse Ox 97.7 F 57 L 19 107/66 98 05/03/18 07:41 05/03/18 07:41 05/03/18 07:41 05/03/18 07:41 05/03/18 07:41 - Labs Labs: 05/02/18 05:45 05/03/18 05:30 PT 11.6 Seconds (9.8-13.1) 05/02/18 05:45 INR 1.0 05/02/18 05:45 APTT 35.9 Seconds (25.6-37.1) 05/02/18 05:45 Assessment and Plan - Assessment and Plan (Free Text) Assessment: Patient was personally seen and examined by me in rounds with residents. Available labs and diagnostic data reviewed. Case, Patient's condition and management plan discussed with residents in rounds. Agree with resident's progress note. Plan: As ordered.
[2018-05-03] MEDS: metroNIDAZOLE 500mg/100ml NS 100 ML IVPB SCH ×2 (00:08→08:38)
[2018-05-03 06:32] LABS: ALB/GLOB RATIO 1.1 (1.0-2.1); ALT/SGPT 323 U/L (21-72); AST/SGOT 116 U/L (17-59); BLOOD UREA NITROGEN 12 mg/dl (9-20); CALCIUM 9.2 mg/dL (8.4-10.2); GFR NON-AFRICAN AMERICAN > 60
[2018-05-03 07:41] VITALS: BP 107/66; PULSE 57; RESP 19; TEMP 97.7; O2SAT 98
[2018-05-03] MEDS: Ciprofloxacin 400mg/200ml D5W 400 MG/200 ML BAG IVPB SCH (08:38)
--- NOTE | 2018-05-03 14:35 | PN ---
DATE: 05/03/2018 SUBJECTIVE: The patient seen and examined. Interim events noted. Consults noted and appreciated. Surgical followup and intervention noted and appreciated. The patient has decided to get surgery [place] country. The patient denies any pain and feels much improved. No chest pain. No shortness of breath. No abdominal pain. No nausea, vomiting or diarrhea. PHYSICAL EXAMINATION: EXTREMITIES: No edema. No calf swelling. No tenderness. No acute ischemia. 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 ABDOMINAL: Does not show any sign of acute abdomen. No guarding. No rigidity. No rebound. DIAGNOSTIC DATA: Available diagnostic data reviewed. ASSESSMENT AND PLAN: Overall, the patient's general medical condition is stable. Plan as ordered. Broderick Dhillon MD
== END 2018-05-03 11:49 | disposition home or self-care (01) | DRG 387 ==
LOC: H.ER 18:40 → H.ERHOLD 23:39 → H.MEDSURG1 05-01 01:44
PROVIDERS: ADMIT Internal Medicine; ATTEND Internal Medicine
DX: K50.90 Crohn's disease, unspecified, without complications (principal); K80.20 Calculus of gallbladder without cholecystitis without obstruction; R74.0 Nonspecific elevation of levels of transaminase and lactic acid dehydrogenase [LDH]; Z86.19 Personal history of other infectious and parasitic diseases; Z91.041 Radiographic dye allergy status